=== PATIENT | male | born 1955 | race Caucasian/White ===

== ENCOUNTER 2018-06-23 09:04 | Day surgery (SDC) | payer MEDICARE, MEDICAID ==
[~2018-06-23] VITALS: Ht 162.6 cm; Wt 66.6 kg
[2018-06-23] MEDS ORDERED: LACTATED RINGERS 1,000 ML IV SCH (09:36)
[2018-06-23] MEDS ORDERED: FERR500P8 PO (09:51)
[2018-06-23] MEDS ORDERED: LISI1TAB3 PO (09:51)
[2018-06-23] MEDS ORDERED: SERT100T5 PO (09:51)
[2018-06-23] MEDS ORDERED: RANI150T4 PO (09:51)
[2018-06-23] MEDS ORDERED: METO25TA91 PO (09:51)
[2018-06-23] MEDS ORDERED: ATOR20TA86 PO (09:51)
[2018-06-23] MEDS ORDERED: MONT10TA9 PO (09:51)
[2018-06-23] MEDS ORDERED: LITH300T3 PO (09:51)
[2018-06-23] MEDS ORDERED: RISP1SOL PO (09:51)
[2018-06-23] MEDS ORDERED: LEVO125T PO (09:51)
[2018-06-23] MEDS ORDERED: pro air (09:51)
[2018-06-23] MEDS ORDERED: BECL10.62 INH (09:51)
[2018-06-23 09:52] VITALS: BP 117/76
[2018-06-23 10:39] LABS: ALANINE AMINOTRANSFERASE 16 U/L (12-78); ANION GAP 7 mmol/L (5-15); CALCIUM 8.2 mg/dL (8.5-10.1); CHLORIDE 111 mmol/L (98-107); CREATININE 1.26 mg/dL (0.7-1.3)
[2018-06-23 10:42] LABS: ALKALINE PHOSPHATASE 68 U/L (45-117); BILIRUBIN,TOTAL 0.5 mg/dL (0.2-1.0); TOTAL PROTEIN 6.7 g/dL (6.4-8.2)
[2018-06-23] MEDS ORDERED: OXYcodone 5 MG/5 ML ORAL.SOL UDC PO PRN (12:30)
[2018-06-23] MEDS ORDERED: MIDAZOLAM 1 MG/ML, 2ML IV PRN (12:30)
[2018-06-23] MEDS ORDERED: hydrALAzine 20 MG/ML, 1ML IV PRN (12:30)
[2018-06-23] MEDS ORDERED: HYDROmorphone 2 MG/ML, 1ML IVPush PRN (12:30)
[2018-06-23] MEDS ORDERED: PROMETHAZINE 12.5 MG SUPP PR PRN (12:30)
[2018-06-23] MEDS ORDERED: DIAZEPAM 5 MG/ML, 2ML IVPush PRN (12:30)
[2018-06-23] MEDS ORDERED: ONDANSETRON ODT 8 MG PO PRN (12:30)
[2018-06-23] MEDS ORDERED: FENTANYL PF 100 MCG/2ML IV PRN (12:30)
[2018-06-23] MEDS ORDERED: ONDANSETRON 2MG/ML, 2ML IV PRN (12:30)
[2018-06-23] MEDS ORDERED: EPHEDRINE 50 MG/ML, 1ML IVPush PRN (12:30)
[2018-06-23] MEDS ORDERED: MORPHINE SULFATE 4 MG/ML, 1ML IVPush PRN (12:30)
[2018-06-23] MEDS ORDERED: PROMETHAZINE 25 MG/ML, 1ML IV PRN (12:30)
[2018-06-23] MEDS ORDERED: MEPERIDINE/PF 25MG/0.5ML IVPush PRN (12:30)
[2018-06-23] MEDS ORDERED: HALOPERIDOL 5 MG/ML IV PRN (12:30)
[2018-06-23] MEDS ORDERED: LABETALOL 5MG/ML, 20ML IV PRN (12:30)
[2018-06-23] MEDS ORDERED: ALBUTEROL SULFATE 2.5 MG/3 ML NPPB PRN (12:30)
[2018-06-23] MEDS ORDERED: DEXAMETHASONE 4 MG/ML, 1ML ONE (16:00)
[2018-06-23] MEDS ORDERED: ONDANSETRON 2MG/ML, 2ML ONE (16:00)
[2018-06-23] MEDS ORDERED: PROPOFOL 10 MG/ML, 20ML ONE (16:00)
== END 2018-06-23 13:35 | disposition home or self-care (01) ==
LOC: OUT 09:04
PROVIDERS: ATTEND Internal Medicine Gastroenterology
DX: K62.1 Rectal polyp (principal); K21.0 Gastro-esophageal reflux disease with esophagitis; K29.80 Duodenitis without bleeding; K31.819 Angiodysplasia of stomach and duodenum without bleeding; K44.9 Diaphragmatic hernia without obstruction or gangrene; K64.4 Residual hemorrhoidal skin tags; K29.70 Gastritis, unspecified, without bleeding; D50.9 Iron deficiency anemia, unspecified; J44.9 Chronic obstructive pulmonary disease, unspecified; I10 Essential (primary) hypertension; E03.9 Hypothyroidism, unspecified; F31.9 Bipolar disorder, unspecified; Z91.018 Allergy to other foods; Z79.899 Other long term (current) drug therapy; Z98.890 Other specified postprocedural states
CPT/HCPCS: 36415; 43239; 45380; 71045; 80053; 88305; 93005; J1100; J2405; J2704